=== PATIENT | male | born 1945 | race African-American/Black ===

== ENCOUNTER 2018-04-20 07:18 | Inpatient (IN) | payer MEDICARE, MEDICAID ==
[~2018-04-20] VITALS: Ht 172.7 cm; Wt 75.7 kg
[2018-04-20] MEDS ORDERED: SODIUM CHLORIDE 0.9% 1,000 ML IV ONE (08:42)
[2018-04-20 09:13] LABS: BASOPHILS % 0.7 % (0.0-2.0); EOSINOPHILS % 1.1 % (0.0-5.0); HEMATOCRIT. 34.1 % (42.0-52.0); HEMOGLOBIN. 11.3 g/dL (14.0-18.0); LYMPHOCYTES % 24.2 % (20.0-50.0); MEAN CORPUSCULAR HEMOGLOBIN 31.1 pg (28.0-32.0); MEAN CORPUSCULAR VOLUME 93.7 fL (80.0-94.0); MEAN PLATELET VOLUME 9.7 fl (7.4-10.4); MONOCYTES % 7.7 % (2.0-8.0); NEUTROPHILS % 66.3 % (40.0-76.0); PLATELET 223 x1000/uL (130-400); RED BLOOD CELL COUNT 3.64 mill/uL (4.7-6.1); RED CELL DISTRIBUTION WIDTH 13.3 % (11.6-14.6)
[2018-04-20 09:17] LABS: CHLORIDE 110 mEq/L (98-107)
[2018-04-20 09:18] LABS: PROTHROMBIN TIME 9.9 sec (9.1-11.1)
[2018-04-20] MEDS ORDERED: LORAZEPAM 0.5MG TABLET PO ONE (12:15)
[2018-04-20 15:01] LABS: CLARITY URINE CLEAR (CLEAR); COLOR URINE YELLOW (YELLOW); KETONES URINE NEGATIVE (NEGATIVE); LEUKOCYTE ESTERASE URINE NEGATIVE (NEGATIVE); NITRITE URINE NEGATIVE (NEGATIVE); OCCULT BLOOD URINE NEGATIVE (NEGATIVE); PROTEIN URINE NEGATIVE (NEGATIVE); SPECIFIC GRAVITY URINE 1.018 (1.005-1.030); UROBILINOGEN URINE 0.2 E.U./dL (0.2-1.0)
[2018-04-20 15:08] LABS: HEMATOCRIT 28.5 % (42.0-52.0); HEMOGLOBIN 9.8 g/dL (14.0-18.0); MEAN CORPUSCULAR HEMOGLOBIN 32.3 pg (28.0-32.0); MEAN CORPUSCULAR VOLUME 93.9 fL (80.0-94.0); PLATELET 186 x1000/uL (130-400); RED BLOOD CELL COUNT 3.04 mill/uL (4.7-6.1); RED CELL DISTRIBUTION WIDTH 13.2 % (11.6-14.6)
[2018-04-20] MEDS ORDERED: LORAZEPAM 0.5MG TABLET PO PRN (19:00)
[2018-04-21] MEDS ORDERED: ONDANSETRON HCL 4MG/2ML INJ IV PRN (09:00)
[2018-04-21 09:47] LABS: EOSINOPHILS % 2.8 % (0.0-5.0); HEMATOCRIT. 28.3 % (42.0-52.0); HEMOGLOBIN. 9.6 g/dL (14.0-18.0); MEAN CORPUSCULAR HEMOGLOBIN 31.9 pg (28.0-32.0); MEAN PLATELET VOLUME 9.2 fl (7.4-10.4); MONOCYTES % 7.7 % (2.0-8.0); NEUTROPHILS % 59.5 % (40.0-76.0); PLATELET 193 x1000/uL (130-400); RED BLOOD CELL COUNT 3.01 mill/uL (4.7-6.1); RED CELL DISTRIBUTION WIDTH 13.4 % (11.6-14.6)
[2018-04-21 09:48] LABS: CHLORIDE 109 mEq/L (98-107)
[2018-04-21 09:55] LABS: LDL CHOLESTEROL 107 mg/dL (5-100)
[2018-04-21 09:56] LABS: HDL CHOLESTEROL 41 mg/dL (40-59)
[2018-04-21] MEDS ORDERED: ACETAMINOPHEN 325MG TABLET PO PRN (10:00)
[2018-04-21] MEDS ORDERED: DEXT 5%/0.45% NACL 1000ML 1,000 ML IV SCH (10:15)
[2018-04-21] MEDS ORDERED: DIATR MEGLU/DIATRIZOATE SOLN 30ML PO SCH (10:15)
[2018-04-21 11:23] LABS: *AMPHETAMINES SCREEN URINE NEGATIVE (NEGATIVE); *BARBITURATES SCREEN URINE NEGATIVE (NEGATIVE); *BENZODIAZEPINES SCREEN URINE NEGATIVE (NEGATIVE); *COCAINE SCREEN URINE NEGATIVE (NEGATIVE); METHADONE URINE SCREEN NEGATIVE (NEGATIVE); OPIATES URINE SCREEN NEGATIVE (NEGATIVE)
[2018-04-21 11:24] LABS: CANNABINOID URINE SCREEN NEGATIVE (NEGATIVE); PHENCYCLIDINE URINE SCREEN NEGATIVE (NEGATIVE)
[2018-04-21 11:39] LABS: TOTAL IRON BINDING CAPACITY 273 ug/dL (250-450)
[2018-04-21 12:20] VITALS: BP 109/76
[2018-04-21 12:24] VITALS: BP 109/76
[2018-04-21] MEDS ORDERED: ESOM40CA MT (12:50)
[2018-04-21] MEDS ORDERED: TRAZ-212 MT (12:50)
[2018-04-21] MEDS ORDERED: AMLO5TAB88 MT (12:50)
[2018-04-21] MEDS ORDERED: ATOR20TA65 MT (12:50)
[2018-04-21] MEDS ORDERED: LINA145C MT (12:50)
[2018-04-21] MEDS ORDERED: ALEN70TA46 MT (12:50)
[2018-04-21] MEDS ORDERED: AMLODIPINE 5MG TABLET PO SCH (14:00)
[2018-04-21] MEDS ORDERED: PNEUMOCOCCAL 23-VAL P-SAC VAC 0.5 ML IM ONE (15:45)
[2018-04-21] MEDS ORDERED: INFLUENZA VIRUS VACCINE(AFLURIA) 0.5ML SYR IM ONE (15:45)
[2018-04-21] MEDS ORDERED: IOHEXOL-300 100 ML BOTTLE ONE (17:18)
[2018-04-21] MEDS: PANTOPRAZOLE SODIUM 40 MG/VIAL IV SCH ×2 (17:28→21:09)
[2018-04-21 20:00] VITALS: BP 117/69
[2018-04-21] MEDS: TRAZODONE HCL 50MG TABLET PO SCH (21:09)
[2018-04-21] MEDS: ATORVASTATIN CALCIUM 20MG TABLET PO SCH (21:10)
[2018-04-21 22:43] LABS: HEMATOCRIT 24.7 % (42.0-52.0); HEMOGLOBIN 8.6 g/dL (14.0-18.0)
[2018-04-22] VITALS: BP 110/67
[2018-04-22 04:00] VITALS: BP 113/66
[2018-04-22 06:42] LABS: BASOPHILS % 0.7 % (0.0-2.0); EOSINOPHILS % 5.6 % (0.0-5.0); HEMATOCRIT. 26.6 % (42.0-52.0); LYMPHOCYTES % 32.4 % (20.0-50.0); MEAN CORPUSCULAR HEMOGLOBIN 31.5 pg (28.0-32.0); MEAN CORPUSCULAR VOLUME 92.9 fL (80.0-94.0); MEAN PLATELET VOLUME 9.2 fl (7.4-10.4); MONOCYTES % 9.8 % (2.0-8.0); NEUTROPHILS % 51.5 % (40.0-76.0); PLATELET 201 x1000/uL (130-400); RED BLOOD CELL COUNT 2.86 mill/uL (4.7-6.1); RED CELL DISTRIBUTION WIDTH 13.2 % (11.6-14.6)
[2018-04-22 06:59] LABS: CHLORIDE 111 mEq/L (98-107)
[2018-04-22] MEDS ORDERED: IOHEXOL-350 100 ML BOTTLE ONE (07:58)
[2018-04-22 08:00] VITALS: BP 113/74
[2018-04-22] MEDS: TAMSULOSIN HCL 0.4MG SR CAPSULE PO SCH (08:24)
[2018-04-22] MEDS: PANTOPRAZOLE SODIUM 40 MG/VIAL IV SCH ×2 (08:24→21:17)
[2018-04-22 12:00] VITALS: BP 108/67
[2018-04-22 15:25] LABS: HEMATOCRIT 25.3 % (42.0-52.0); HEMOGLOBIN 8.6 g/dL (14.0-18.0)
[2018-04-22] MEDS ORDERED: SORBITOL 70% SOLN 30ML PO NR ×3 (15:30→21:00)
[2018-04-22 16:00] VITALS: BP 113/72
[2018-04-22] MEDS ORDERED: METOCLOPRAMIDE HCL 10MG TABLET PO NR (16:00)
[2018-04-22 20:00] VITALS: BP 147/88
[2018-04-22] MEDS ORDERED: BISACODYL 5MG TABLET PO PRN (20:00)
[2018-04-22] MEDS: BISACODYL 5MG TABLET PO PRN (20:47)
[2018-04-22] MEDS: METOCLOPRAMIDE 10MG/10 ML UDC PO NR ×2 (20:55→21:18)
[2018-04-22] MEDS: TRAZODONE HCL 50MG TABLET PO SCH (21:00)
[2018-04-22] MEDS: ATORVASTATIN CALCIUM 20MG TABLET PO SCH (21:17)
[2018-04-23] VITALS: BP 103/64
[2018-04-23] MEDS: IRON SUCROSE COMPLEX 100 MG/5 ML ML IV SCH ×2 (00:25→23:40)
[2018-04-23 01:41] LABS: HEMATOCRIT 26.3 % (42.0-52.0)
[2018-04-23 04:00] VITALS: BP 109/52
[2018-04-23 07:03] LABS: PARTIAL THROMBOPLASTIN TIME 30.3 sec (23.4-31.0); PROTHROMBIN TIME 10.2 sec (9.1-11.1)
[2018-04-23 07:04] LABS: BASOPHILS % 0.9 % (0.0-2.0); EOSINOPHILS % 4.9 % (0.0-5.0); HEMATOCRIT. 25.1 % (42.0-52.0); HEMOGLOBIN. 8.6 g/dL (14.0-18.0); LYMPHOCYTES % 26.8 % (20.0-50.0); MEAN CORPUSCULAR HEMOGLOBIN 31.9 pg (28.0-32.0); MEAN CORPUSCULAR VOLUME 93.3 fL (80.0-94.0); MONOCYTES % 9.7 % (2.0-8.0); NEUTROPHILS % 57.7 % (40.0-76.0); PLATELET 221 x1000/uL (130-400); RED BLOOD CELL COUNT 2.69 mill/uL (4.7-6.1); RED CELL DISTRIBUTION WIDTH 13.4 % (11.6-14.6)
[2018-04-23 07:11] LABS: CHLORIDE 111 mEq/L (98-107)
[2018-04-23 08:00] VITALS: BP_SYST 111; BP_SYST 125; BP_SYST 91; BP_DIAS 60; BP_DIAS 70; BP_DIAS 82
[2018-04-23] MEDS ORDERED: SORBITOL 70% SOLN 30ML PO NR ×2 (08:45→20:00)
[2018-04-23] MEDS: TAMSULOSIN HCL 0.4MG SR CAPSULE PO SCH (09:04)
[2018-04-23] MEDS: PANTOPRAZOLE SODIUM 40 MG/VIAL IV SCH ×2 (09:04→21:02)
[2018-04-23] MEDS: FLUDROCORTISONE ACETATE 0.1MG TABLET PO SCH (10:30)
[2018-04-23 12:00] VITALS: BP 121/74
[2018-04-23 16:00] VITALS: BP 122/86
[2018-04-23] MEDS ORDERED: BISACODYL 5MG TABLET PO PRN (18:30)
[2018-04-23] MEDS: BISACODYL 5MG TABLET PO PRN (19:07)
[2018-04-23] MEDS: DEXT 5%/0.45% NACL 1000ML 1,000 ML IV SCH (19:43)
[2018-04-23 20:00] VITALS: BP 143/68
[2018-04-23] MEDS ORDERED: METOCLOPRAMIDE HCL 10MG/2ML VIAL IV NR (20:00)
[2018-04-23] MEDS: TRAZODONE HCL 50MG TABLET PO SCH (21:02)
[2018-04-23] MEDS: ATORVASTATIN CALCIUM 20MG TABLET PO SCH (21:02)
[2018-04-24] VITALS (8 sets, daily range): BP systolic 106–128; BP diastolic 66–79
[2018-04-24 00:41] LABS: BASOPHILS % 0.8 % (0.0-2.0); EOSINOPHILS % 3.4 % (0.0-5.0); HEMATOCRIT. 27.9 % (42.0-52.0); HEMOGLOBIN. 9.6 g/dL (14.0-18.0); LYMPHOCYTES % 23.3 % (20.0-50.0); MEAN CORPUSCULAR HEMOGLOBIN 32.2 pg (28.0-32.0); MEAN CORPUSCULAR VOLUME 93.8 fL (80.0-94.0); MEAN PLATELET VOLUME 9.3 fl (7.4-10.4); MONOCYTES % 9.4 % (2.0-8.0); NEUTROPHILS % 63.1 % (40.0-76.0); PLATELET 268 x1000/uL (130-400); RED BLOOD CELL COUNT 2.98 mill/uL (4.7-6.1); RED CELL DISTRIBUTION WIDTH 13.7 % (11.6-14.6)
[2018-04-24 08:33] LABS: BASOPHILS % 0.8 % (0.0-2.0); EOSINOPHILS % 4.2 % (0.0-5.0); HEMATOCRIT. 28.6 % (42.0-52.0); HEMOGLOBIN. 9.7 g/dL (14.0-18.0); MEAN CORPUSCULAR HEMOGLOBIN 32.4 pg (28.0-32.0); MEAN CORPUSCULAR VOLUME 95.5 fL (80.0-94.0); MEAN PLATELET VOLUME 8.3 fl (7.4-10.4); MONOCYTES % 11.4 % (2.0-8.0); NEUTROPHILS % 58.6 % (40.0-76.0); PLATELET 251 x1000/uL (130-400); RED BLOOD CELL COUNT 2.99 mill/uL (4.7-6.1); RED CELL DISTRIBUTION WIDTH 13.7 % (11.6-14.6)
[2018-04-24 08:54] LABS: CHLORIDE 112 mEq/L (98-107)
[2018-04-24] MEDS: PANTOPRAZOLE SODIUM 40 MG/VIAL IV SCH (09:16)
[2018-04-24] MEDS ORDERED: SIMETHICONE 40 MG/0.6 ML 30ML ONE ×2 (09:57→15:18)
[2018-04-24] MEDS ORDERED: MIDAZOLAM HCL 5 MG/5 ML VIAL ONE (09:57)
[2018-04-24] MEDS ORDERED: FENTANYL CITRATE/PF 50MCG/ML 2ML VIAL ONE (09:58)
[2018-04-24] MEDS ORDERED: FENTANYL CITRATE/PF 50MCG/ML 2ML VIAL IV PRN (09:58)
[2018-04-24] MEDS ORDERED: MIDAZOLAM HCL 5 MG/5 ML VIAL IV PRN (09:59)
[2018-04-24] MEDS: FLUDROCORTISONE ACETATE 0.1MG TABLET PO SCH (12:57)
[2018-04-24] MEDS: SUCRALFATE 1G TABLET PO SCH ×3 (12:57→21:15)
[2018-04-24] MEDS: TAMSULOSIN HCL 0.4MG SR CAPSULE PO SCH (12:57)
[2018-04-24] MEDS: DEXT 5%/0.45% NACL 1000ML 1,000 ML IV SCH (13:10)
[2018-04-24] MEDS ORDERED: BACTERIOSTATIC SODIUM CHLORIDE 0.9% 30ML VIAL IJ ONE (15:18)
[2018-04-24] MEDS: ATORVASTATIN CALCIUM 20MG TABLET PO SCH (21:15)
[2018-04-24] MEDS: TRAZODONE HCL 50MG TABLET PO SCH (21:15)
[2018-04-24] MEDS: IRON SUCROSE COMPLEX 100 MG/5 ML ML IV SCH (23:14)
[2018-04-25 04:00] VITALS: BP 121/81
[2018-04-25 06:38] LABS: BASOPHILS % 0.5 % (0.0-2.0); EOSINOPHILS % 3.9 % (0.0-5.0); HEMATOCRIT. 25.6 % (42.0-52.0); HEMOGLOBIN. 8.6 g/dL (14.0-18.0); MEAN CORPUSCULAR VOLUME 94.9 fL (80.0-94.0); MEAN PLATELET VOLUME 8.9 fl (7.4-10.4); MONOCYTES % 8.6 % (2.0-8.0); PLATELET 240 x1000/uL (130-400); RED CELL DISTRIBUTION WIDTH 13.8 % (11.6-14.6)
[2018-04-25 07:05] LABS: CHLORIDE 111 mEq/L (98-107)
[2018-04-25 08:00] VITALS: BP 118/69
[2018-04-25] MEDS ORDERED: PANTOPRAZOLE SODIUM 40 MG/VIAL IV SCH (09:00)
[2018-04-25] MEDS: SUCRALFATE 1G TABLET PO SCH (10:08)
[2018-04-25] MEDS: FLUDROCORTISONE ACETATE 0.1MG TABLET PO SCH (10:08)
[2018-04-25] MEDS: TAMSULOSIN HCL 0.4MG SR CAPSULE PO SCH (10:09)
[2018-04-25 12:00] VITALS: BP 116/75
[2018-04-25 16:00] VITALS: BP 122/74
[2018-04-25 17:19] VITALS: BP 122/74
[2018-04-27] MEDS ORDERED: ALENDRONATE SODIUM 35MG TABLET PO SCH (09:00)
== END 2018-04-25 18:36 | disposition home health service (06) | DRG 378 ==
LOC: ER 07:28 → 7WST 13:37 → EDBEDREQTM 13:46 → EDBEDREQ 13:46 → ENRESERV 04-21 10:15
PROVIDERS: ADMIT Internal Medicine; ATTEND Internal Medicine
PROC: 0DBN8ZZ Excision of Sigmoid Colon, Via Natural or Artificial Opening Endoscopic (ICD-10-PCS; principal; 2018-04-24)
PROC: 0DBK8ZZ Excision of Ascending Colon, Via Natural or Artificial Opening Endoscopic (ICD-10-PCS; 2018-04-24)
PROC: 0DBP8ZX Excision of Rectum, Via Natural or Artificial Opening Endoscopic, Diagnostic (ICD-10-PCS; 2018-04-24)
PROC: 0DB68ZX Excision of Stomach, Via Natural or Artificial Opening Endoscopic, Diagnostic (ICD-10-PCS; 2018-04-24)
DX: K92.2 Gastrointestinal hemorrhage, unspecified (principal); J98.11 Atelectasis; C79.51 Secondary malignant neoplasm of bone; D64.9 Anemia, unspecified; J44.9 Chronic obstructive pulmonary disease, unspecified; E87.8 Other disorders of electrolyte and fluid balance, not elsewhere classified; C61 Malignant neoplasm of prostate; I10 Essential (primary) hypertension; I95.1 Orthostatic hypotension; K62.1 Rectal polyp; K63.9 Disease of intestine, unspecified; K26.9 Duodenal ulcer, unspecified as acute or chronic, without hemorrhage or perforation; E87.6 Hypokalemia; K63.5 Polyp of colon; N40.0 Benign prostatic hyperplasia without lower urinary tract symptoms; K29.70 Gastritis, unspecified, without bleeding; K29.80 Duodenitis without bleeding; Z86.73 Personal history of transient ischemic attack (TIA), and cerebral infarction without residual deficits; Z85.46 Personal history of malignant neoplasm of prostate
CPT/HCPCS: 36415; 71045; 74177; 80048; 80061; 80305; 82270; 82728; 83540; 83550; 84153; 84443; 85014; 85018; 85027; 86850; 86900; 88305; 88312; 88313; 93005; 93306; 96360; 96361; 97161; 99152; 99153; 99285; C9113; J2250; J2405; J2765; J3010; J3490; J7030; J7040; J8597; Q9963; Q9967; G0103; G0500

== ENCOUNTER 2019-06-25 10:46 | Emergency (ER) | payer MEDICARE, MEDICAID ==
[~2019-06-25] VITALS: Ht 177.8 cm; Wt 85.0 kg
[~2019-06-25 10:46] MED LIST: ALEN70TA68 MT; AMLO5TAB88 MT; ATOR20TA65 MT; ESOM40CA MT; LINA145C MT; TRAZ-251 MT
[2019-06-25 11:33] LABS: CHLORIDE 103 mEq/L (98-107)
[2019-06-25 11:37] LABS: BASOPHILS % 0.4 % (0.0-2.0); EOSINOPHILS % 8.5 % (0.0-5.0); HEMOGLOBIN. 14.6 g/dL (14.0-18.0); LYMPHOCYTES % 30.7 % (20.0-50.0); MEAN CORPUSCULAR HEMOGLOBIN 31.8 pg (28.0-32.0); MEAN CORPUSCULAR VOLUME 93.3 fL (80.0-94.0); MEAN PLATELET VOLUME 8.4 fl (7.4-10.4); MONOCYTES % 9.6 % (2.0-8.0); NEUTROPHILS % 50.8 % (40.0-76.0); PLATELET 206 x1000/uL (130-400); RED BLOOD CELL COUNT 4.61 mill/uL (4.7-6.1); RED CELL DISTRIBUTION WIDTH 13.5 % (11.6-14.6)
[2019-06-25] MEDS ORDERED: SODIUM CHLORIDE 0.9% 500 ML IV ONE (11:40)
[2019-06-25 11:42] LABS: PROTHROMBIN TIME 10.4 sec (9.6-11.0)
[2019-06-25] MEDS ORDERED: KETOROLAC 15MG/ML VIAL IV ONE (11:45)
[2019-06-25 13:00] LABS: CLARITY URINE TURBID (CLEAR); COLOR URINE DK YELLOW (YELLOW); KETONES URINE TRACE (NEGATIVE); LEUKOCYTE ESTERASE URINE NEGATIVE (NEGATIVE); NITRITE URINE NEGATIVE (NEGATIVE); OCCULT BLOOD URINE NEGATIVE (NEGATIVE); PH URINE 5.5 (4.5-8.0); PROTEIN URINE 1+ (NEGATIVE); SPECIFIC GRAVITY URINE 1.026 (1.005-1.030)
[2019-06-25 14:56] VITALS: BP 102/78
== END 2019-06-25 15:02 | disposition home or self-care (01) ==
LOC: ER 10:59
DX: M54.5 Low back pain (principal); R30.0 Dysuria; R31.0 Gross hematuria; I10 Essential (primary) hypertension; R39.15 Urgency of urination
CPT/HCPCS: 36415; 74176; 80053; 81003; 83690; 85025; 85610; 87086; 99284; J7040

== ENCOUNTER 2019-07-15 17:26 | Emergency (ER) | payer MEDICARE, MEDICAID ==
[~2019-07-15] VITALS: Ht 177.8 cm; Wt 82.0 kg
[2019-07-15] MEDS ORDERED: SODIUM CHLORIDE 0.9% 1,000 ML IV ONE (18:03)
[2019-07-15] MEDS ORDERED: FAMOTIDINE 20MG/2ML VIAL IV STA (18:03)
[2019-07-15 18:46] LABS: CLARITY URINE CLOUDY (CLEAR); COLOR URINE YELLOW (YELLOW); KETONES URINE TRACE (NEGATIVE); LEUKOCYTE ESTERASE URINE NEGATIVE (NEGATIVE); NITRITE URINE NEGATIVE (NEGATIVE); OCCULT BLOOD URINE 1+ (NEGATIVE); PH URINE 5.5 (4.5-8.0); PROTEIN URINE 1+ (NEGATIVE); SPECIFIC GRAVITY URINE 1.014 (1.005-1.030); UROBILINOGEN URINE 0.2 E.U./dL (0.2-1.0)
[2019-07-15 19:01] LABS: *AMPHETAMINES SCREEN URINE NEGATIVE (NEGATIVE); *BARBITURATES SCREEN URINE NEGATIVE (NEGATIVE); *BENZODIAZEPINES SCREEN URINE NEGATIVE (NEGATIVE); *COCAINE SCREEN URINE NEGATIVE (NEGATIVE); METHADONE URINE SCREEN NEGATIVE (NEGATIVE)
[2019-07-15 19:02] LABS: CANNABINOID URINE SCREEN NEGATIVE (NEGATIVE); OPIATES URINE SCREEN NEGATIVE (NEGATIVE); PHENCYCLIDINE URINE SCREEN NEGATIVE (NEGATIVE)
[2019-07-15 19:17] LABS: EOSINOPHILS % 8.7 % (0.0-5.0); HEMATOCRIT. 39.8 % (42.0-52.0); HEMOGLOBIN. 13.7 g/dL (14.0-18.0); LYMPHOCYTES % 21.4 % (20.0-50.0); MEAN CORPUSCULAR HEMOGLOBIN 32.2 pg (28.0-32.0); MEAN CORPUSCULAR VOLUME 93.6 fL (80.0-94.0); MEAN PLATELET VOLUME 8.9 fl (7.4-10.4); NEUTROPHILS % 60.9 % (40.0-76.0); PLATELET 304 x1000/uL (130-400); RED BLOOD CELL COUNT 4.25 mill/uL (4.7-6.1); RED CELL DISTRIBUTION WIDTH 13.9 % (11.6-14.6)
[2019-07-15 19:21] LABS: CHLORIDE 108 mEq/L (98-107); PROTHROMBIN TIME 10.5 sec (9.6-11.0)
[2019-07-15 19:25] LABS: ETHANOL BLOOD < 10 mg/dL
[2019-07-15 21:31] VITALS: BP 115/70
== END 2019-07-15 21:32 | disposition home or self-care (01) ==
LOC: ER 17:26
DX: R10.0 Acute abdomen (principal); I10 Essential (primary) hypertension
CPT/HCPCS: 36415; 71045; 74176; 80053; 80305; 80320; 81003; 83690; 83880; 84484; 85025; 85610; 93005; 96361; 96374; 99285; J3490; J7030; G0480

== ENCOUNTER 2019-07-18 19:57 | Inpatient (IN) | payer MEDICARE, MEDICAID ==
[~2019-07-18] VITALS: Ht 162.6 cm; Wt 50.4 kg
[2019-07-18] MEDS ORDERED: SODIUM CHLORIDE 0.9% 1000ML BAG (SEPSIS BOLUS) IV ONE (20:30)
[2019-07-18 21:41] LABS: CLARITY URINE CLOUDY (CLEAR); COLOR URINE DARK YELLOW (YELLOW); KETONES URINE 1+ (NEGATIVE); LEUKOCYTE ESTERASE URINE NEGATIVE (NEGATIVE); NITRITE URINE NEGATIVE (NEGATIVE); OCCULT BLOOD URINE NEGATIVE (NEGATIVE); PROTEIN URINE 1+ (NEGATIVE); SPECIFIC GRAVITY URINE 1.023 (1.005-1.030)
[2019-07-18 22:10] LABS: BASOPHILS % 0.3 % (0.0-2.0); EOSINOPHILS % 9.4 % (0.0-5.0); HEMATOCRIT. 38.3 % (42.0-52.0); HEMOGLOBIN. 13.2 g/dL (14.0-18.0); LYMPHOCYTES % 17.8 % (20.0-50.0); MEAN CORPUSCULAR HEMOGLOBIN 32.3 pg (28.0-32.0); MEAN CORPUSCULAR VOLUME 93.8 fL (80.0-94.0); MEAN PLATELET VOLUME 9.4 fl (7.4-10.4); MONOCYTES % 11.4 % (2.0-8.0); NEUTROPHILS % 61.1 % (40.0-76.0); PLATELET 260 x1000/uL (130-400); RED BLOOD CELL COUNT 4.08 mill/uL (4.7-6.1); RED CELL DISTRIBUTION WIDTH 13.9 % (11.6-14.6)
[2019-07-18 22:22] LABS: CHLORIDE 104 mEq/L (98-107)
[2019-07-18] MEDS: CEFTRIAXONE 1 G PREMIX 50 ML IV NR ×2 (23:41→23:59)
[2019-07-19 04:15] VITALS: BP 129/80
[2019-07-19] MEDS ORDERED: DEXTROSE 50% WATER 50ML SYRINGE IV PRN (04:15)
[2019-07-19] MEDS ORDERED: ACETAMINOPHEN 650MG/20.3ML UDC PO PRN (04:15)
[2019-07-19 04:16] VITALS: BP 129/85
[2019-07-19] MEDS: INSULIN LISPRO 100 UNITS/ML SUBCUT SCH ×3 (05:53→20:42)
[2019-07-19] MEDS: BLOOD SUGAR DIAGNOSTIC STRIP TEST SCH ×3 (05:53→20:42)
[2019-07-19 08:00] VITALS: BP 150/78
[2019-07-19] MEDS ORDERED: AZITHROMYCIN 500 MG in DEXT 5% WATER 250 ML IV SCH (08:00)
[2019-07-19] MEDS: ENOXAPARIN 30MG/0.3ML SYR SUBCUT SCH ×2 (09:00→09:02)
[2019-07-19 12:00] VITALS: BP 133/73
[2019-07-19 16:00] VITALS: BP 147/76
[2019-07-19 20:00] VITALS: BP 126/87
[2019-07-19] MEDS: SODIUM CHLORIDE 0.9% 1,000 ML IV SCH (20:30)
[2019-07-19] MEDS ORDERED: CEFTRIAXONE 1 G PREMIX 50 ML IV SCH (21:00)
[2019-07-20] VITALS: BP 144/62
[2019-07-20 03:20] VITALS: BP 140/67
[2019-07-20] MEDS: INSULIN LISPRO 100 UNITS/ML SUBCUT SCH ×4 (05:52→20:58)
[2019-07-20] MEDS: BLOOD SUGAR DIAGNOSTIC STRIP TEST SCH ×4 (05:52→20:58)
[2019-07-20] MEDS: OMEPRAZOLE 20MG CAPSULE EXTENDED RELEASE PO SCH (06:33)
[2019-07-20 07:41] LABS: HEMATOCRIT. 34.3 % (42.0-52.0); HEMOGLOBIN. 11.9 g/dL (14.0-18.0); MEAN CORPUSCULAR HEMOGLOBIN 32.2 pg (28.0-32.0); MEAN CORPUSCULAR VOLUME 92.9 fL (80.0-94.0); MEAN PLATELET VOLUME 9.9 fl (7.4-10.4); PLATELET 237 x1000/uL (130-400); RED BLOOD CELL COUNT 3.69 mill/uL (4.7-6.1); RED CELL DISTRIBUTION WIDTH 13.6 % (11.6-14.6)
[2019-07-20 07:59] LABS: CHLORIDE 109 mEq/L (98-107)
[2019-07-20 08:00] VITALS: BP 109/62
[2019-07-20] MEDS: ENOXAPARIN 30MG/0.3ML SYR SUBCUT SCH (08:39)
[2019-07-20] MEDS: SODIUM CHLORIDE 0.9% 1,000 ML IV SCH ×2 (08:39→22:15)
[2019-07-20 12:00] VITALS: BP 134/76
[2019-07-20 13:18] LABS: PLATELET ESTIMATE NORMAL
[2019-07-20 16:00] VITALS: BP 106/55
[2019-07-20 20:00] VITALS: BP_SYST 106; BP_SYST 123; BP_SYST 141; BP_DIAS 67; BP_DIAS 74; BP_DIAS 93
[2019-07-21] VITALS: BP 134/82
[2019-07-21 04:00] VITALS: BP 114/62
[2019-07-21] MEDS: OMEPRAZOLE 20MG CAPSULE EXTENDED RELEASE PO SCH (06:32)
[2019-07-21] MEDS: BLOOD SUGAR DIAGNOSTIC STRIP TEST SCH (06:33)
[2019-07-21] MEDS: INSULIN LISPRO 100 UNITS/ML SUBCUT SCH (07:50)
[2019-07-21 08:00] VITALS: BP 110/62
[2019-07-21] MEDS: ENOXAPARIN 30MG/0.3ML SYR SUBCUT SCH (09:03)
[2019-07-21] MEDS: SODIUM CHLORIDE 0.9% 1,000 ML IV SCH (09:06)
[2019-07-21 12:00] VITALS: BP 118/63
[2019-07-21 16:00] VITALS: BP 123/79
[2019-07-21 20:00] VITALS: BP_SYST 150; BP_SYST 95; BP_DIAS 52; BP_DIAS 92
[2019-07-21] MEDS: HYDROCORTISONE 1% CREAM 30GM TOP SCH (20:55)
[2019-07-22] VITALS: BP 138/73
[2019-07-22] MEDS: SODIUM CHLORIDE 0.9% 1,000 ML IV SCH (01:52)
[2019-07-22 04:00] VITALS: BP 119/71
[2019-07-22] MEDS: OMEPRAZOLE 20MG CAPSULE EXTENDED RELEASE PO SCH ×2 (06:30→09:34)
[2019-07-22 08:00] VITALS: BP 113/62
[2019-07-22] MEDS: ENOXAPARIN 30MG/0.3ML SYR SUBCUT SCH (09:35)
[2019-07-22] MEDS: HYDROCORTISONE 1% CREAM 30GM TOP SCH (09:35)
[2019-07-22 12:00] VITALS: BP 122/64
[2019-07-22 12:43] VITALS: BP 122/64
== END 2019-07-22 15:50 | disposition home or self-care (01) | DRG 374 ==
LOC: ER 20:05 → MICUSO 23:34 → EDBEDREQ 23:35 → EDBEDREQTM 23:35 → EDBEDREQSVC 23:35 → 7WST 07-19 03:49 → 6WST 07-20 03:11
PROVIDERS: ADMIT Internal Medicine; ATTEND Internal Medicine
PROC: 02HV33Z Insertion of Infusion Device into Superior Vena Cava, Percutaneous Approach (ICD-10-PCS; principal; 2019-07-20)
PROC: B548ZZA Ultrasonography of Superior Vena Cava, Guidance (ICD-10-PCS; 2019-07-20)
PROC: B5181ZA Fluoroscopy of Superior Vena Cava using Low Osmolar Contrast, Guidance (ICD-10-PCS; 2019-07-20)
DX: C18.9 Malignant neoplasm of colon, unspecified (principal); N17.0 Acute kidney failure with tubular necrosis; C79.51 Secondary malignant neoplasm of bone; E44.1 Mild protein-calorie malnutrition; Z68.1 Body mass index [BMI] 19.9 or less, adult; E87.2 Acidosis; C61 Malignant neoplasm of prostate; E11.42 Type 2 diabetes mellitus with diabetic polyneuropathy; D64.9 Anemia, unspecified; I10 Essential (primary) hypertension; K29.70 Gastritis, unspecified, without bleeding; Z20.828 Contact with and (suspected) exposure to other viral communicable diseases; R26.9 Unspecified abnormalities of gait and mobility; R00.0 Tachycardia, unspecified; Z86.73 Personal history of transient ischemic attack (TIA), and cerebral infarction without residual deficits; Z79.899 Other long term (current) drug therapy; Z85.46 Personal history of malignant neoplasm of prostate
CPT/HCPCS: 36415; 36573; 71045; 74176; 76937; 80048; 80053; 80305; 80320; 81003; 82962; 83036; 83605; 83880; 84145; 84484; 85025; 92523; 92610; 93005; 96365; 97162; 97166; 97530; 99285; C1725; J0456; J0696; J1650; J7030; J7060; G0480; U0003-CS

== ENCOUNTER 2020-12-25 10:18 | Inpatient (IN) | payer MEDICARE, MEDICAID ==
[~2020-12-25] VITALS: Ht 180.3 cm; Wt 56.3 kg
[2020-12-25] MEDS ORDERED: ACETAMINOPHEN 325MG TABLET PO STA (11:11)
[2020-12-25 12:48] LABS: BASOPHILS % 0.3 % (0.0-2.0); EOSINOPHILS % 0.1 % (0.0-5.0); HEMATOCRIT. 33.8 % (42.0-52.0); HEMOGLOBIN. 11.5 g/dL (14.0-18.0); LYMPHOCYTES % 8.7 % (20.0-50.0); MEAN CORPUSCULAR HEMOGLOBIN 33.2 pg (28.0-32.0); MEAN CORPUSCULAR VOLUME 97.5 fL (80.0-94.0); MEAN PLATELET VOLUME 9.5 fl (7.4-10.4); MONOCYTES % 8.2 % (2.0-8.0); NEUTROPHILS % 82.7 % (40.0-76.0); PLATELET 243 x1000/uL (130-400); RED BLOOD CELL COUNT 3.47 mill/uL (4.7-6.1); RED CELL DISTRIBUTION WIDTH 13.3 % (11.6-14.6)
[2020-12-25 12:54] LABS: CHLORIDE 108 mEq/L (98-107)
[2020-12-25 12:58] LABS: ETHANOL BLOOD < 10 mg/dL; INR 1.1; PROTHROMBIN TIME 11.4 sec (9.6-11.0)
[2020-12-25 12:58] LABS: CLARITY URINE CLEAR (CLEAR); COLOR URINE YELLOW (YELLOW); KETONES URINE NEGATIVE (NEGATIVE); LEUKOCYTE ESTERASE URINE NEGATIVE (NEGATIVE); NITRITE URINE NEGATIVE (NEGATIVE); OCCULT BLOOD URINE NEGATIVE (NEGATIVE); PROTEIN URINE TRACE (NEGATIVE); SPECIFIC GRAVITY URINE 1.021 (1.005-1.030); UROBILINOGEN URINE 0.2 E.U./dL (0.2-1.0)
[2020-12-25 13:16] LABS: *AMPHETAMINES SCREEN URINE NEGATIVE (NEGATIVE); *BARBITURATES SCREEN URINE NEGATIVE (NEGATIVE); *BENZODIAZEPINES SCREEN URINE NEGATIVE (NEGATIVE); *COCAINE SCREEN URINE NEGATIVE (NEGATIVE); CANNABINOID URINE SCREEN NEGATIVE (NEGATIVE); METHADONE URINE SCREEN NEGATIVE (NEGATIVE); OPIATES URINE SCREEN NEGATIVE (NEGATIVE); PHENCYCLIDINE URINE SCREEN NEGATIVE (NEGATIVE)
[2020-12-25 23:51] VITALS: BP 117/76
[2020-12-26] MEDS ORDERED: DEXTROSE 50% WATER 50ML SYRINGE IV PRN (01:00)
[2020-12-26 04:00] VITALS: BP 114/75
[2020-12-26] MEDS: BLOOD SUGAR DIAGNOSTIC STRIP TEST SCH ×4 (06:27→21:17)
[2020-12-26] MEDS: INSULIN LISPRO 100 UNITS/ML SUBCUT SCH ×4 (06:46→21:00)
[2020-12-26] MEDS: FAMOTIDINE 20MG TABLET PO SCH (06:51)
[2020-12-26] MEDS ORDERED: BLOOD SUGAR DIAGNOSTIC STRIP TEST SCH (07:10)
[2020-12-26 08:00] VITALS: BP 122/79
[2020-12-26] MEDS: MULTIVITAMINS,THER W-MINERALS TABLET PO SCH (09:59)
[2020-12-26 12:00] VITALS: BP 116/74
[2020-12-26] MEDS ORDERED: ENOXAPARIN 40MG/0.4ML SYR SUBCUT SCH (13:00)
[2020-12-26] MEDS: ACETAMINOPHEN 325MG TABLET PO PRN (14:27)
[2020-12-26 16:00] VITALS: BP 102/98
[2020-12-26] MEDS ORDERED: CEFAZOLIN 1000MG PREMIX 50 ML IV SCH (18:00)
[2020-12-26 20:00] VITALS: BP 135/81
[2020-12-26] MEDS ORDERED: VANCOMYCIN 1 G PREMIX 200 ML IV NR (21:30)
[2020-12-27] VITALS: BP 103/60
[2020-12-27 04:00] VITALS: BP 125/68
[2020-12-27] MEDS: FAMOTIDINE 20MG TABLET PO SCH (06:24)
[2020-12-27] MEDS: BLOOD SUGAR DIAGNOSTIC STRIP TEST SCH ×4 (06:24→21:59)
[2020-12-27] MEDS: INSULIN LISPRO 100 UNITS/ML SUBCUT SCH ×4 (06:49→21:00)
[2020-12-27 08:00] VITALS: BP 108/62
[2020-12-27] MEDS: MULTIVITAMINS,THER W-MINERALS TABLET PO SCH (09:53)
[2020-12-27 12:00] VITALS: BP 121/68
[2020-12-27] MEDS ORDERED: VANCOMYCIN 750 MG PREMIX 150 ML IV SCH (12:00)
[2020-12-27] MEDS: ENOXAPARIN 30MG/0.3ML SYR SUBCUT SCH (12:11)
[2020-12-27 16:00] VITALS: BP 124/67
[2020-12-27 20:00] VITALS: BP 126/73
[2020-12-27] MEDS: CEFAZOLIN 2000MG in DEXTROSE 5% WATER 100ML IV SCH (22:31)
[2020-12-28] VITALS: BP 130/71
[2020-12-28 04:00] VITALS: BP 125/67
[2020-12-28] MEDS: BLOOD SUGAR DIAGNOSTIC STRIP TEST SCH ×4 (06:30→20:45)
[2020-12-28] MEDS: FAMOTIDINE 20MG TABLET PO SCH (06:33)
[2020-12-28] MEDS: ACETAMINOPHEN 325MG TABLET PO PRN ×2 (06:50→11:08)
[2020-12-28] MEDS: INSULIN LISPRO 100 UNITS/ML SUBCUT SCH ×4 (06:52→21:00)
[2020-12-28 08:00] VITALS: BP 118/70
[2020-12-28] MEDS: CEFAZOLIN 2000MG in DEXTROSE 5% WATER 100ML IV SCH ×2 (11:08→20:44)
[2020-12-28] MEDS: MULTIVITAMINS,THER W-MINERALS TABLET PO SCH (11:08)
[2020-12-28 12:00] VITALS: BP 115/72
[2020-12-28] MEDS: ENOXAPARIN 30MG/0.3ML SYR SUBCUT SCH (14:22)
[2020-12-28 16:00] VITALS: BP 130/78
[2020-12-28] MEDS ORDERED: LORAZEPAM 2MG/ML CPJ IM PRN (16:00)
[2020-12-28 17:38] LABS: BASOPHILS % 0.6 % (0.0-2.0); EOSINOPHILS % 6.9 % (0.0-5.0); HEMATOCRIT. 28.5 % (42.0-52.0); HEMOGLOBIN. 9.9 g/dL (14.0-18.0); LYMPHOCYTES % 17.9 % (20.0-50.0); MEAN CORPUSCULAR HEMOGLOBIN 33.2 pg (28.0-32.0); MEAN CORPUSCULAR VOLUME 95.8 fL (80.0-94.0); MEAN PLATELET VOLUME 9.9 fl (7.4-10.4); MONOCYTES % 11.4 % (2.0-8.0); NEUTROPHILS % 63.2 % (40.0-76.0); PLATELET 221 x1000/uL (130-400); RED BLOOD CELL COUNT 2.98 mill/uL (4.7-6.1); RED CELL DISTRIBUTION WIDTH 12.7 % (11.6-14.6)
[2020-12-28] MEDS: CALCIUM CARBONATE/VITAMIN D3 500MG TABLET PO SCH (18:05)
[2020-12-28 20:00] VITALS: BP 128/81
[2020-12-29] VITALS: BP 131/73
[2020-12-29 04:00] VITALS: BP 128/73
[2020-12-29] MEDS: BLOOD SUGAR DIAGNOSTIC STRIP TEST SCH ×4 (06:12→20:54)
[2020-12-29] MEDS: FAMOTIDINE 20MG TABLET PO SCH (06:22)
[2020-12-29] MEDS: INSULIN LISPRO 100 UNITS/ML SUBCUT SCH ×4 (07:40→21:00)
[2020-12-29 08:00] VITALS: BP 138/68
[2020-12-29] MEDS ORDERED: GADOTERATE MEGLUMINE 5 MMOL/10 ML VIAL IV ONE (09:42)
[2020-12-29] MEDS: CEFAZOLIN 2000MG in DEXTROSE 5% WATER 100ML IV SCH ×2 (10:16→20:54)
[2020-12-29] MEDS: MULTIVITAMINS,THER W-MINERALS TABLET PO SCH (10:16)
[2020-12-29] MEDS: CALCIUM CARBONATE/VITAMIN D3 500MG TABLET PO SCH ×2 (10:16→18:01)
[2020-12-29] MEDS: BICALUTAMIDE 50 MG TABLET PO SCH (10:21)
[2020-12-29 12:00] VITALS: BP 139/76
[2020-12-29] MEDS: ENOXAPARIN 30MG/0.3ML SYR SUBCUT SCH ×2 (12:58→12:59)
[2020-12-29 16:00] VITALS: BP 114/75
[2020-12-29] MEDS: CALCITONIN,SALMON, 3.7 ML NASAL SPRAY ONENSTRL SCH (16:30)
[2020-12-29 20:00] VITALS: BP 146/77
[2020-12-30] VITALS: BP 127/71
[2020-12-30 04:00] VITALS: BP 118/68
[2020-12-30] MEDS: FAMOTIDINE 20MG TABLET PO SCH (06:01)
[2020-12-30] MEDS: BLOOD SUGAR DIAGNOSTIC STRIP TEST SCH ×4 (07:06→21:00)
[2020-12-30] MEDS: INSULIN LISPRO 100 UNITS/ML SUBCUT SCH ×4 (07:06→21:00)
[2020-12-30 08:00] VITALS: BP 124/67
[2020-12-30] MEDS: CEFAZOLIN 2000MG in DEXTROSE 5% WATER 100ML IV SCH (08:44)
[2020-12-30] MEDS: CALCITONIN,SALMON, 3.7 ML NASAL SPRAY ONENSTRL SCH (08:44)
[2020-12-30] MEDS: BICALUTAMIDE 50 MG TABLET PO SCH (08:44)
[2020-12-30] MEDS: MULTIVITAMINS,THER W-MINERALS TABLET PO SCH (08:44)
[2020-12-30] MEDS: CALCIUM CARBONATE/VITAMIN D3 500MG TABLET PO SCH ×2 (08:44→16:28)
[2020-12-30] MEDS: ACETAMINOPHEN 325MG TABLET PO PRN (08:52)
[2020-12-30 12:00] VITALS: BP 130/77
[2020-12-30] MEDS: ENOXAPARIN 30MG/0.3ML SYR SUBCUT SCH (13:44)
[2020-12-30 16:00] VITALS: BP 114/65
[2020-12-30 20:00] VITALS: BP 123/73
[2020-12-31] VITALS: BP 126/69
[2020-12-31 04:00] VITALS: BP 136/77
[2020-12-31] MEDS: BLOOD SUGAR DIAGNOSTIC STRIP TEST SCH ×2 (07:10→11:35)
[2020-12-31] MEDS: CEFAZOLIN 2000MG in DEXTROSE 5% WATER 100ML IV SCH ×2 (07:16→08:16)
[2020-12-31] MEDS: INSULIN LISPRO 100 UNITS/ML SUBCUT SCH ×2 (07:40→11:48)
[2020-12-31 08:00] VITALS: BP 112/73
[2020-12-31] MEDS: MULTIVITAMINS,THER W-MINERALS TABLET PO SCH (08:16)
[2020-12-31] MEDS: CALCIUM CARBONATE/VITAMIN D3 500MG TABLET PO SCH (08:16)
[2020-12-31] MEDS: FAMOTIDINE 20MG TABLET PO SCH (08:18)
[2020-12-31] MEDS: BICALUTAMIDE 50 MG TABLET PO SCH (08:19)
[2020-12-31] MEDS: CALCITONIN,SALMON, 3.7 ML NASAL SPRAY ONENSTRL SCH (08:20)
[2020-12-31 12:05] VITALS: BP 132/79
[2020-12-31 12:16] VITALS: BP 132/79
== END 2020-12-31 13:45 | disposition home health service (06) | DRG 314 ==
LOC: ER 10:28 → 8WST 15:33 → ENRESERV 22:52
PROVIDERS: ADMIT Internal Medicine; ATTEND Internal Medicine
DX: T80.211A Bloodstream infection due to central venous catheter, initial encounter (principal); G82.50 Quadriplegia, unspecified; E43 Unspecified severe protein-calorie malnutrition; N17.9 Acute kidney failure, unspecified; Z68.1 Body mass index [BMI] 19.9 or less, adult; R78.81 Bacteremia; M48.54XA Collapsed vertebra, not elsewhere classified, thoracic region, initial encounter for fracture; C79.51 Secondary malignant neoplasm of bone; R62.7 Adult failure to thrive; R29.6 Repeated falls; R74.01 Elevation of levels of liver transaminase levels; B95.61 Methicillin susceptible Staphylococcus aureus infection as the cause of diseases classified elsewhere; E11.42 Type 2 diabetes mellitus with diabetic polyneuropathy; R26.89 Other abnormalities of gait and mobility; D64.9 Anemia, unspecified; F03.90 Unspecified dementia, unspecified severity, without behavioral disturbance, psychotic disturbance, mood disturbance, and anxiety; I12.9 Hypertensive chronic kidney disease with stage 1 through stage 4 chronic kidney disease, or unspecified chronic kidney disease; I25.10 Atherosclerotic heart disease of native coronary artery without angina pectoris; J44.9 Chronic obstructive pulmonary disease, unspecified; M19.90 Unspecified osteoarthritis, unspecified site; N18.9 Chronic kidney disease, unspecified; R53.81 Other malaise; Z60.2 Problems related to living alone; R26.9 Unspecified abnormalities of gait and mobility; Y83.8 Other surgical procedures as the cause of abnormal reaction of the patient, or of later complication, without mention of misadventure at the time of the procedure; Z20.822 Contact with and (suspected) exposure to COVID-19; E87.8 Other disorders of electrolyte and fluid balance, not elsewhere classified; Z92.21 Personal history of antineoplastic chemotherapy; Z85.46 Personal history of malignant neoplasm of prostate; Z86.73 Personal history of transient ischemic attack (TIA), and cerebral infarction without residual deficits; Z87.891 Personal history of nicotine dependence; Z82.49 Family history of ischemic heart disease and other diseases of the circulatory system; Y92.89 Other specified places as the place of occurrence of the external cause
CPT/HCPCS: 36415; 70551; 70552; 71045; 72141; 72146; 72148; 80048; 80053; 80305; 80320; 81003; 82962; 83036; 83605; 84145; 84484; 85025; 86850; 86900; 87077; 87186; 87426; 92610; 93005; 93306; 97162; 99285; A9577; C1893; J0690; J1650; J2060; J3370; J7060; G0480